=== PATIENT | male | born 1995 | race Two or more races ===

== ENCOUNTER 2018-09-21 12:25 | Emergency (ER) | payer MEDICAID, OTHER ==
[~2018-09-21] VITALS: Ht 167.6 cm; Wt 49.0 kg
[2018-09-21 12:43] LABS: Urine WBC None Seen /hpf (0 - 3)
[2018-09-21 13:03] LABS: Urine Bacteria NONE SEEN /hpf (None Seen); Urine Blood Negative /uL (Negative); Urine Specific Gravity 1.015 (1.001-1.035)
[2018-09-21 13:39] LABS: Basophils # (auto) 0 uL; Basophils % (auto) 0.3 % (0.0-2.0); Eosinophils # (auto) 0.1 uL; Eosinophils % (auto) 1.6 % (0.0-7.0); Hematocrit 49.2 % (41.0-53.0); Lymphocytes # (auto) 1.9 uL; Lymphocytes % (auto) 29.3 % (10.0-50.0); Mean Corpuscular Hemoglobin 29.8 pg (28.0-32.0); Mean Corpuscular Hgb Conc. 34.5 g/dL (32.0-36.0); Mean Corpuscular Volume 86.6 fL (80.0-100.0); Monocytes # (auto) 0.3 uL; Monocytes % (auto) 5.3 % (0.0-12.0); Neutrophils # (auto) 4.1 uL; Neutrophils % (auto) 63.5 % (37.0-80.0); Nucleated Red Blood Cells % 0.3 %; Platelet Count (auto) 174 10^3/uL (140-450); Red Blood Cells 5.68 10^6/uL (4.5-5.90); Red Cell Distribution Width 12.9 % (11.8-14.3); White Blood Cell 6.5 10^3/uL (4.4-10.8)
[2018-09-21 13:54] LABS: Potassium 3.5 mmol/L (3.5-5.1)
[2018-09-21 13:58] LABS: Bilirubin, Total 0.5 mg/dL (0.2-1.0); Total Protein 7.3 g/dL (6.4-8.2)
[2018-09-21 16:37] VITALS: BP 98/59
== END 2018-09-21 18:25 | disposition home or self-care (01) ==
LOC: ER 12:27
DX: N43.3 Hydrocele, unspecified (principal)
CPT/HCPCS: 36415; 74176; 76870; 80053; 81001; 83690; 85025; 94761